=== PATIENT | female | born 1955 | race Two or more races ===

== ENCOUNTER → 2023-12-18 14:41 | Outpatient (REF) | payer OTHER, SELFPAY | LOC: HWWDC 14:41 | PROVIDERS: ATTENDING PHYSICIAN Internal Medicine | DX: Z12.31 Encounter for screening mammogram for malignant neoplasm of breast (principal) | CPT/HCPCS: 77063; 77067 ==

== ENCOUNTER → 2024-10-24 13:36 | Outpatient (REF) | payer OTHER, SELFPAY | LOC: MRI 13:36 | PROVIDERS: ATTENDING PHYSICIAN Physician Assistant Surgical; FAMILY PHYSICIAN Internal Medicine | DX: M25.562 Pain in left knee (principal) | CPT/HCPCS: 73721 ==

== ENCOUNTER → 2024-11-21 10:42 | Outpatient (REF) | payer OTHER, SELFPAY | LOC: HWRAD 10:42 | PROVIDERS: ATTENDING PHYSICIAN Internal Medicine | DX: M81.0 Age-related osteoporosis without current pathological fracture (principal) | CPT/HCPCS: 77080 ==

== ENCOUNTER 2024-12-16 15:14 | Outpatient (RCR) | payer OTHER, SELFPAY | END 2024-12-16 23:59 | disposition home or self-care (01) | LOC: RPT 15:14 | PROVIDERS: ATTENDING PHYSICIAN Student in an Organized Health Care Education/Training Program; FAMILY PHYSICIAN Internal Medicine | DX: M25.562 Pain in left knee (principal); M54.16 Radiculopathy, lumbar region; Z73.6 Limitation of activities due to disability; R26.2 Difficulty in walking, not elsewhere classified; M25.561 Pain in right knee; Z96.651 Presence of right artificial knee joint; Z91.81 History of falling | CPT/HCPCS: 97110; 97140; 97162 ==

== ENCOUNTER → 2024-12-26 10:56 | Outpatient (REF) | payer OTHER, SELFPAY | LOC: HWWDC 10:56 | PROVIDERS: ATTENDING PHYSICIAN Internal Medicine | DX: Z12.31 Encounter for screening mammogram for malignant neoplasm of breast (principal) | CPT/HCPCS: 77063; 77067 ==

== ENCOUNTER 2025-01-19 16:56 | Outpatient (RCR) | payer OTHER, SELFPAY | END 2025-01-19 23:59 | disposition home or self-care (01) | LOC: RPT 16:56 | PROVIDERS: ATTENDING PHYSICIAN Student in an Organized Health Care Education/Training Program; FAMILY PHYSICIAN Internal Medicine | DX: M25.562 Pain in left knee (principal); M54.16 Radiculopathy, lumbar region; Z73.6 Limitation of activities due to disability; R26.2 Difficulty in walking, not elsewhere classified; M25.561 Pain in right knee; Z96.651 Presence of right artificial knee joint; Z91.81 History of falling | CPT/HCPCS: 97110 ==

== ENCOUNTER 2025-02-23 16:04 | Outpatient (RCR) | payer OTHER, SELFPAY | END 2025-02-23 23:59 | disposition home or self-care (01) | LOC: RPT 16:04 | PROVIDERS: ATTENDING PHYSICIAN Student in an Organized Health Care Education/Training Program; FAMILY PHYSICIAN Internal Medicine | DX: M25.562 Pain in left knee (principal); M54.16 Radiculopathy, lumbar region; Z73.6 Limitation of activities due to disability; R26.2 Difficulty in walking, not elsewhere classified; M25.561 Pain in right knee; Z96.651 Presence of right artificial knee joint; Z91.81 History of falling | CPT/HCPCS: 97110 ==